=== PATIENT | male | born 1950 ===

== ENCOUNTER 2018-02-08 09:51 | Emergency (ER) | payer OTHER ==
[2018-02-08 09:58] VITALS: BMI 28.9
--- NOTE | 2018-02-08 11:08 | ED PDOC ---
HPI: Abdomen Time Seen by Provider: 02/08/18 10:23 Chief Complaint (Nursing): Abdominal Pain Chief Complaint (Provider): RLQ pelvic/scrotal pain History Per: Patient Onset/Duration Of Symptoms: Days (Pain x 3 days, "bubble" in Right groin X 12years) Outside of [place] travel?: No Current Symptoms Are (Timing): Still Present Context: Other (bending forward, cough) Location Of Pain/Discomfort: RLQ Quality Of Discomfort: Dull, Aching Exacerbating Factors: Cough, Upright Position Alleviating Factors: Rest, Other (leaning back) Additional Complaint(s): 67 y/o undocumented Male with hx of CVA 3yrs ago (has not followed up), HL, who presents to ED today c/o bulge in Right groin X 12yrs but pain that began in that area x 3 days, worse with leaning forward and cough. Denies N/V, diarrhea, fever, chills, night sweats, dysuria, hesitancy, urgency, frequency. Denies hx of surgeries. 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) - Social History Current smoker - smoking cessation education provided: No Ex-Smoker (has not smoked in the last 12 months): No Alcohol: > 2 Drinks/Day (3 - 4 beers per day) Drugs: Denies - Home Medications Home Medications: Ambulatory Orders Medication Instructions Recorded RX: Aspirin [Ecotrin] 81 mg PO DAILY #0 tabec 05/31/14 RX: Atorvastatin [Lipitor] 80 mg PO DAILY #0 tab 05/31/14 RX: Atorvastatin [Lipitor] 80 mg PO DAILY #30 tab 07/07/14 Docusate Sodium [Colace] 100 mg PO TID #18 capsule 02/08/18 RX: Ibuprofen [Motrin Tab] 600 mg PO Q6 PRN #28 tab 02/08/18 - Allergies Allergies/Adverse Reactions: Allergies Allergy/AdvReac Type Severity Reaction Status Date / Time No Known Allergies Allergy Verified 02/08/18 10:12 Review of Systems Musculoskeletal: Positive for: Other (Right groin pain and bulge) Physical Exam - Reviewed Vital Signs Reviewed: Yes - Physical Exam Appears: Positive for: Non-toxic Head Exam: Positive for: ATRAUMATIC Skin: Positive for: Normal Color Eye Exam: Positive for: Normal appearance Cardiovascular/Chest: Positive for: Regular Rate, Rhythm, Murmur (3/6 JIMMIE heard throughout precordium w/ radiation to Left axilla. No gallop or rub. ) Respiratory: Positive for: Normal Breath Sounds Gastrointestinal/Abdominal: Positive for: Hernia (Right groin bulge at rest with more prominence with cough, reduces spontaneously when not coughing), Other Male Genital Exam: Positive for: other (mild bulge in Right groin/RLQ abdomen when lying flat that becomes more prominent with cough. ) Back: Positive for: Normal Inspection Rectal: Positive for: Deferred Neurologic/Psych: Positive for: Alert, Oriented Comments: Examined in the presence of RNRia. - Laboratory Results Result Diagrams: 02/08/18 11:34 02/08/18 11:34 - ECG O2 Sat by Pulse Oximetry: 99 - Progress ED Course And Treament: CT scan abdomen/pelvis w/ IV contrast ordered to r/O appendicitis U/A BP rechecked: 149/89, no c/o NINA, visual disturbance. Medical Decision Making Medical Decision Makin67 y/o undocumented Male with hx of CVA 3 yrs ago who presents with Right groin pain x 3 days, but R groin bulge X 12yrs. Physical exam consistent Right groin hernia. CT abdomen/pelvis read by radiologist shows mild fatty hepatic infiltration, no evidence of acute appendicitis; findings c/w with localized constipation of Right colon as above. U/A negative for LE or nitrites. Disposition - Clinical Impression Clinical Impression: Right groin hernia - Patient ED Disposition Is Patient to be Admitted: No - Disposition Referrals: [facility] [Outside] James Gaitan MD [Staff Provider] - Disposition: Routine/Home Disposition Time: 16:27 Condition: STABLE Additional Instructions: Avoid heavy lifting as much as possible as may worsen your hernia. Follow-up with primary care doctor for general care. F/u with surgeon for evaluation of hernia. Prescriptions: Docusate Sodium [Colace] 100 mg PO TID #18 capsule RX: Ibuprofen [Motrin Tab] 600 mg PO Q6 PRN #28 tab PRN Reason: Pain, Moderate (4-7) Instructions: Inguinal and Femoral (Groin) Hernias Forms: [employer] (Marshallese) Print Language: IVORIAN
[2018-02-08 11:47] LABS: BASO % 0.2 % (0.0-2.0); EOS % 0.2 % (0.0-4.0); HEMOGLOBIN 15.5 g/dL (12.0-18.0); LYMPH # 1.5 K/uL (1.0-4.3); LYMPH % 23.4 % (20.0-40.0); MEAN CELL VOLUME 96.7 fl (80.0-94.0); MEAN CORPUSCULAR HEMOGLOBIN 32.9 pg (27.0-31.0); MEAN PLATELET VOLUME 8.8 fl (7.2-11.7); MONO # 0.6 K/uL (0.0-0.8); MONO % 8.8 % (0.0-10.0); NEUT # 4.4 K/uL (1.8-7.0); NEUT % 67.4 % (50.0-75.0); NRBC % 0.1 % (0.0-0.0); RBC 4.71 Mil/uL (4.40-5.90); RED CELL DISTRIBUTION WIDTH 13.4 % (11.5-14.5); WHITE BLOOD COUNT 6.6 K/uL (4.8-10.8)
[2018-02-08 11:55] LABS: ALB/GLOB RATIO 1.2 (1.0-2.1); ALBUMIN 4.3 g/dL (3.5-5.0); ALT/SGPT 39 U/L (21-72); AST/SGOT 31 U/L (17-59); BLOOD UREA NITROGEN 16 mg/dl (9-20); CALCIUM 9.2 mg/dL (8.4-10.2); GFR NON-AFRICAN AMERICAN > 60
[2018-02-08] MEDS ORDERED: Sodium Chloride 0.9% 50 ML IV ONE (12:10)
[2018-02-08] MEDS ORDERED: Iohexol 300 100 ML IJ ONE (12:10)
--- NOTE | 2018-02-08 13:59 | CT ---
Date of service: 02/08/2018 PROCEDURE: CT abdomen pelvis HISTORY: RLQ abdominal pain COMPARISON: No prior TECHNIQUE: Contiguous axial images of the abdomen and pelvis performed following intravenous injection of approximately 95 cc Omnipaque 300 contrast material. Additional 2D sagittal and coronal reformats generated. Radiation dose: Total exam DLP = 365.0 mGy-cm. This CT exam was performed using one or more of the following dose reduction techniques: Automated exposure control, adjustment of the mA and/or kV according to patient size, and/or use of iterative reconstruction technique. FINDINGS: LOWER THORAX: Heart size is mildly enlarged. No significant pericardial effusion. There is a small hiatal hernia. Mild passive/dependent type atelectasis both posterior lower lung varma. No effusion or basilar pneumothorax. Apparent calcified granuloma medial aspect left posterior sulcus. LIVER: Liver exhibits normal size measuring just over 15 cm in CC dimension. Mild fatty hepatic infiltration. No obvious hepatic mass or collection. Portal and splenic veins are opacified. GALLBLADDER AND BILE DUCTS: Gallbladder is distended. Note made of a Phrygian cap. PANCREAS: Unremarkable. No mass. No ductal dilatation. SPLEEN: Spleen exhibits normal size and attenuation pattern without mass collection or calcification. ADRENALS: No adrenal lesions. KIDNEYS AND URETERS: Kidneys demonstrate symmetric nephrograms. No stone or hydronephrosis. BLADDER: The urinary bladder is incompletely distended which may in part account for slight thick-walled appearance. Correlation with urinalysis recommended. REPRODUCTIVE: Prostate gland is enlarged measuring approximately 3.7 cm. Prostatic calcification noted. APPENDIX: Normal-appearing appendix best seen on coronal image number [id number] and axial image number [id number]. No periappendiceal inflammatory changes. BOWEL: Evaluation of the bowel is limited due to the lack of oral contrast material. The stomach is incompletely distended which presumably in part accounts for thick-walled appearance. Visualized loops of small bowel exhibit normal contour and caliber. No evidence of acute mechanical small bowel obstruction. Moderate amount of stool is seen within the cecum and at ascending and proximal transverse colon suggesting mild fecal retention/constipation. PERITONEUM: Unremarkable. No fluid collection. No free air. There are small fat containing bilateral inguinal hernias right larger than left. A knuckle of unobstructed the bowel extends into the mouth of the right inguinal hernia. LYMPH NODES: Unremarkable. No enlarged lymph nodes. VASCULATURE: Aortic atherosclerotic calcification/mural plaque present. No aortic aneurysm. BONES: Mild multilevel degenerative spondylosis of the lower thoracic and lumbar spine OTHER FINDINGS: None. IMPRESSION: Mild fatty hepatic infiltration. Findings consistent with localized constipation right colon as above. No evidence of acute appendicitis. See above discussion for additional details and findings.
[2018-02-08 14:43] VITALS: BP 149/89; PULSE 65; RESP 16; TEMP 98
[2018-02-08 14:45] VITALS: O2SAT 99
[2018-02-08 15:48] LABS: URINE BILIRUBIN NEGATIVE (NEGATIVE); URINE BLOOD SMALL (NEGATIVE); URINE CLARITY CLEAR (Clear); URINE COLOR STRAW (YELLOW); URINE GLUCOSE (UA) NEG (Normal); URINE LEUKOCYTE ESTERASE NEG Leu/uL (Negative); URINE PROTEIN NEGATIVE (NEGATIVE); URINE UROBILINOGEN 0.2-1.0 mg/dL (0.2-1.0)
--- NOTE | 2018-02-09 02:55 | CARD ---
APPROVED REPORT Date of service: 02/08/2018 EKG Measurement Heart [id number] <Conclusion> Sinus bradycardia Otherwise normal ECG
== END 2018-02-08 16:27 | disposition home or self-care (01) ==
LOC: H.ER 09:51
DX: K46.9 Unspecified abdominal hernia without obstruction or gangrene (principal); Z86.73 Personal history of transient ischemic attack (TIA), and cerebral infarction without residual deficits; Z87.891 Personal history of nicotine dependence
CPT/HCPCS: 74177; 80053; 81003; 85025; 87086; 93005; 99283; Q9967